=== PATIENT | female | born 1945 | race Two or more races ===

== ENCOUNTER 2019-07-25 11:35 | Inpatient (IN) | payer OTHER ==
[~2019-07-25] VITALS: Ht 121.9 cm; Wt 5.0 kg
[2019-08-02] MEDS ORDERED: MAXFE CAPLET1 EACH (09:04)
[2019-08-02] MEDS ORDERED: CALTRATE 600 +1 EACH (09:05)
[2019-08-02] MEDS ORDERED: METHOTREXATE2.5 MG (09:05)
[2019-08-02] MEDS ORDERED: HORIZANT300 MG (09:05)
[2019-08-02] MEDS ORDERED: HYDROXYCHLOROQ100 GM (09:06)
[2019-08-02] MEDS ORDERED: ALTACE10 MG (09:06)
[2019-08-02] MEDS ORDERED: CHILDREN'S ASPI81 MG (09:06)
[2019-08-02] MEDS ORDERED: SIMVASTATIN5 MG (09:07)
[2019-08-02] MEDS ORDERED: DIALYVITE 800-1 EACH (09:07)
[2019-08-02] MEDS ORDERED: DRAMAMINE LESS25 MG (09:08)
== END 2019-08-10 14:52 | disposition home or self-care (01) | DRG 740 ==
LOC: O/R 08-08 05:09 → OB/GYN 08-08 05:09 → SURG 08-08 07:30 → OB/GYN 08-08 07:30
PROVIDERS: ADMIT Obstetrics & Gynecology Gynecologic Oncology
PROC: 0UT70ZZ Resection of Bilateral Fallopian Tubes, Open Approach (ICD-10-PCS; 2019-08-08)
PROC: 0UT20ZZ Resection of Bilateral Ovaries, Open Approach (ICD-10-PCS; 2019-08-08)
PROC: 0UT90ZZ Resection of Uterus, Open Approach (ICD-10-PCS; principal; 2019-08-08 07:00)
DX: C53.0 Malignant neoplasm of endocervix (principal); J45.31 Mild persistent asthma with (acute) exacerbation; N73.6 Female pelvic peritoneal adhesions (postinfective); I10 Essential (primary) hypertension; I25.118 Atherosclerotic heart disease of native coronary artery with other forms of angina pectoris